=== PATIENT | female | born 1975 | race Caucasian/White ===

== ENCOUNTER 2016-07-24 19:29 | Inpatient (IN) | payer BC, OTHER ==
[~2016-07-24] VITALS: Ht 167.6 cm; Wt 90.7 kg
[2016-07-24 20:52] LABS: Basophils # (auto) 0.1 uL; Basophils % (auto) 0.5 % (0.0-2.0); Eosinophils # (auto) 0.1 uL; Eosinophils % (auto) 0.5 % (0.0-7.0); Hematocrit 38.9 % (36.0-46.0); Hemoglobin 12.8 g/dL (12.2-16.2); Lymphocytes # (auto) 1.4 uL; Lymphocytes % (auto) 8.4 % (10.0-50.0); Mean Corpuscular Hemoglobin 27.6 pg (28.0-32.0); Mean Corpuscular Hgb Conc. 32.8 g/dL (32.0-36.0); Mean Corpuscular Volume 84.3 fL (80.0-100.0); Mean Platelet Volume 9.9 fL (7.4-10.4); Monocytes # (auto) 0.9 uL; Monocytes % (auto) 5.8 % (0.0-12.0); Neutrophils # (auto) 13.7 uL; Neutrophils % (auto) 84.8 % (37.0-80.0); Platelet Count (auto) 297 10^3/uL (140-450); Red Cell Distribution Width 14.4 % (11.6-16.0); White Blood Cell 16.1 10^3/uL (4.4-10.8)
[2016-07-24 21:12] LABS: Albumin 3.7 g/dL (3.4-5.0); BUN/Creatinine Ratio 11.8; Bilirubin, Total 0.4 mg/dL (0.2-1.0); Calcium 9.1 mg/dL (8.5-10.1); Magnesium 2.1 mg/dL (1.6-2.6); Potassium 3.2 mmol/L (3.5-5.1); Total Protein 7.7 g/dL (6.4-8.2)
[2016-07-24] MEDS ORDERED: HYDROmorphone HCL 2 MG/ML VL IV ONE ×2 (21:45→23:15)
[2016-07-24] MEDS ORDERED: ONDANSETRON HCL 4 MG/2 ML VIAL IV ONE (21:45)
[2016-07-24] MEDS ORDERED: SODIUM CHLORIDE 0.9% 1,000 ML IVB ONE (21:45)
[2016-07-24 22:13] LABS: Amylase 27 U/L (25-115)
[2016-07-24 22:22] LABS: INR 0.94 (0.9-1.15); Partial Thromboplastin Time 30.2 sec (22.64-33.71); Prothrombin Time 10.1 sec (9.37-12.3)
[2016-07-24 22:37] LABS: Urine RBC None Seen /hpf (0 - 4)
[2016-07-24 22:52] LABS: Urine Bilirubin Negative (Negative); Urine Blood Negative /uL (Negative); Urine Color Yellow (Yellow); Urine Glucose Normal (Normal); Urine Mucus FEW (None Seen); Urine Nitrite Negative (Negative); Urine Squamous Epithelial Cell FEW /hpf (<5)
[2016-07-24 22:59] LABS: Urine Ketone 4+ (Negative)
[2016-07-25] MEDS ORDERED: PROMETHAZINE HCL 25 MG/ML 1ML IM ONE (01:15)
[2016-07-25] MEDS ORDERED: HYDROmorphone HCL 2 MG/ML VL IV ONE (04:15)
[2016-07-25] MEDS ORDERED: SODIUM CHLORIDE 0.9% 1,000 ML IV SCH (05:26)
[2016-07-25] MEDS ORDERED: ONDANSETRON HCL 4 MG/2 ML VIAL IV PRN (05:30)
[2016-07-25] MEDS ORDERED: DOCUSATE SOD 100 MG CAP PO PRN (05:30)
[2016-07-25] MEDS ORDERED: ACETAMINOPHEN 325 MG TAB PO PRN (05:30)
[2016-07-25] MEDS ORDERED: TEMAZEPAM 15 MG CAP PO PRN (05:30)
[2016-07-25] MEDS ORDERED: NITROGLYCERIN 0.4 MG SL TAB SL PRN (05:30)
[2016-07-25] MEDS ORDERED: MORPHINE SULF INJ 2 MG/ML SYRINGE 1ML IV PRN (05:30)
[2016-07-25] MEDS ORDERED: metroNIDAZOLE 500MG/100ML 100 ML IV ONE (06:00)
[2016-07-25 09:00] VITALS: BP 115/69
[2016-07-25] MEDS ORDERED: cefTRIAXone 1GM/50ML D5W 50 ML IV SCH (09:00)
[2016-07-25] MEDS ORDERED: FAMOTIDINE 20 MG TAB PO SCH (10:00)
[2016-07-25] MEDS ORDERED: ASCORBIC ACID 500 MG TAB PO SCH (10:00)
[2016-07-25] MEDS ORDERED: ZINC SULFATE 220 MG CAP PO SCH (10:00)
[2016-07-25] MEDS ORDERED: MULTIPLE VITAMIN TAB PO SCH (10:00)
[2016-07-25] MEDS ORDERED: ENOXAPARIN SOD 30 MG/0.3 ML SYRINGE SC SCH (10:00)
[2016-07-25] MEDS ORDERED: ENOXAPARIN SOD 40 MG/0.4 ML SYRINGE SC SCH (10:00)
[2016-07-25] MEDS ORDERED: cefTRIAXone 1GM/50ML D5W 50 ML IV ONE (10:00)
[2016-07-25] MEDS ORDERED: POTASSIUM CHL 20 Meq TABLET PO ONE (11:15)
[2016-07-25] MEDS ORDERED: PANTOPRAZOLE SODIUM 40 MG/10 ML VIAL IV ONE (11:15)
[2016-07-25] MEDS ORDERED: metroNIDAZOLE 500MG/100ML 100 ML IV SCH (12:00)
[2016-07-25 13:00] VITALS: BP 155/84
[2016-07-25 16:25] VITALS: BP 124/74
[2016-07-25] MEDS ORDERED: OMEPRAZOLE 20MG/10ML ORAL SUSP PO SCH (22:00)
[2016-07-26] MEDS ORDERED: SODIUM CHLORIDE 0.9% 1,000 ML IV SCH (05:26)
[2016-07-26] MEDS ORDERED: PANTOPRAZOLE SODIUM 40 MG/10 ML VIAL IV SCH (10:00)
== END 2016-07-25 17:05 | disposition home or self-care (01) | DRG 392 ==
LOC: ER 19:43 → OVERFLOW 19:44 → WEST WING 07-25 07:36
PROVIDERS: ADMIT Emergency Medicine; ATTEND Internal Medicine
DX: R11.2 Nausea with vomiting, unspecified (principal); R10.12 Left upper quadrant pain; E66.9 Obesity, unspecified; E86.0 Dehydration; F12.90 Cannabis use, unspecified, uncomplicated; T40.7X5A Adverse effect of cannabis (derivatives), initial encounter; Z79.899 Other long term (current) drug therapy; Z90.49 Acquired absence of other specified parts of digestive tract; Z88.6 Allergy status to analgesic agent; Z91.018 Allergy to other foods; Y92.89 Other specified places as the place of occurrence of the external cause; Z68.32 Body mass index [BMI] 32.0-32.9, adult; Z71.89 Other specified counseling
CPT/HCPCS: 36415; 74176; 80053; 81001; 82150; 83690; 83735; 84484; 84702; 85025; 85610; 85730; 93005; 94761; 96361; 96365; 96372; 96375; 96376; J0696; J2405; J3490